=== PATIENT | male | born 1985 | race Caucasian/White ===

== ENCOUNTER 2018-02-08 19:10 | Emergency (ER) | payer OTHER ==
[~2018-02-08] VITALS: Ht 167.6 cm; Wt 95.3 kg
[2018-02-08 19:17] VITALS: BP 141/85
[2018-02-08] MEDS ORDERED: BACTRIM DS TAB1 EACH PO (20:09)
--- NOTE | 2018-02-08 20:11 | ED GENERAL ADULT ---
History of Present Illness General Chief Complaint: General Adult Stated Complaint: PT POSSIBLE SPIDER BITE ON THE LT LEG Source: patient Exam Limitations: no limitations Vital Signs & Intake/Output Vital Signs & Intake/Output Vital Signs Date Time Temp Pulse Resp B/P B/P Pulse O2 O2 Flow FiO2 Mean Ox Delivery Rate 02/08 1917 98.4 57 18 141/85 97 Room Air Allergies Coded Allergies: No Known Allergies (02/08/18) Reconcile Medications Sulfamethoxazole/Trimethoprim (Bactrim Ds Tablet) 800 MG-160 MG TABLET 1 TAB PO BID cellulitis Triage Note: REQUESTING EVALUATION OF BUG BOTE TO THE LEFT LOWER LEG. NOTICED IT 3 DAYS AGO AND HAS BEEN WORSENING SINCE. Triage Nurses Notes Reviewed? yes Onset: Gradual Duration: day(s): Timing: constant HPI: 32-year-old otherwise healthy male presenting with pain and redness to his left leg 3 days. Patient reports that his symptoms initially started with a small red dot that he thought was a bug bite, but the redness has been gradually spreading over the past few days. Has been using topical Neosporin without relief. Denies fevers, nausea, vomiting, numbness, paresthesias, drainage. (Shae Barrera) Past History Travel History Traveled to [place] past 21 day No Medical History Any Pertinent Medical History? none Surgical History Surgical History: non-contributory Psychosocial History What is your primary language Swedish Tobacco Use: Current Daily Use Daily Tobacco Use Amount/Type: => 5 Cigarettes daily Family History Hx Contributory? No (Shae Barrera) Review of Systems Review of Systems Constitutional: Reports: no symptoms. EENTM: Reports: no symptoms. Respiratory: Reports: no symptoms. Cardiovascular: Reports: no symptoms. GI: Reports: no symptoms. Genitourinary: Reports: no symptoms. Musculoskeletal: Reports: see HPI. Skin: Reports: see HPI. Neurological/Psychological: Reports: no symptoms. Hematologic/Endocrine: Reports: no symptoms. Immunologic/Allergic: Reports: no symptoms. All Other Systems: Reviewed and Negative (Shae Barrera) Physical Exam Physical Exam General Appearance: well developed/nourished, no apparent distress, alert, awake , comfortable Head: atraumatic, normal appearance Eyes: Bilateral: normal appearance. Neck: normal inspection Respiratory: normal breath sounds, lungs clear Cardiovascular: regular rate/rhythm Gastrointestinal: soft, non-tender Back: normal inspection Extremities: on exam of the left lower extremity there is trace erythema and TTP to the anterior distal leg over the coyle. There is no edema or increased warmth. The calf is supple and non-tender. Sensation intact. Motor strength 5/5. Distal pulses 2+. Able to bear weight and ambulate. Neurologic/Psych: awake, alert, oriented x 3, normal gait, normal mood/affect Skin: intact, normal color, warm/dry Core Measures ACS in differential dx? No CVA/TIA Diagnosis: No Sepsis Present: No Sepsis Focused Exam Completed? No (Shae Barrera) Progress Differential Diagnoses I considered the following diagnoses in my evaluation of the patient: [Insect bite versus cellulitis, low concern for DVT versus sepsis versus fracture] Plan of Care: Current Medications Sig/Kartik Start time Last Medication Dose Stop Time Status Admin Trimethoprim/ 1 TAB ONCE ONE 02/08 2015 UNVr Sulfamethoxazole 02/09 2016 (Bactrim DS) Exam is consistent with a mild cellulitis. Low concern for sepsis as patient has had no systemic symptoms, therefore no indication for labs at this time. Rx Bactrim. Counseled on supportive care and strict return precautions. Initial ED EKG: none (Shae Barrera) Departure Departure Disposition: HOME OR SELF CARE Condition: Stable Clinical Impression Primary Impression: Cellulitis Referrals: Patient Has No Primary Care Dr (PCP/Family) Additional Instructions: Take Bactrim as prescribed. Follow-up with a primary care provider to establish care and for reevaluation. Return to the emergency department for any fevers, worsening redness, drainage, vomiting, or any other new or concerning symptoms. Departure Forms: Customer Survey General Discharge Information Prescriptions: Current Visit Scripts Sulfamethoxazole/Trimethoprim (Bactrim Ds Tablet) 1 TAB PO BID #20 TAB (Shae Barrera) PA/PHARMACY SERVICE ASSOCIATE Co-Sign Statement Statement: ED Attending supervision documentation- [] I saw and evaluated the patient. I have also reviewed all the pertinent lab results and diagnostic results. I agree with the findings and the plan of care as documented in the PA's/PHARMACY SERVICE ASSOCIATE's documentation. [x] I have reviewed the ED Record and agree with the PA's/PHARMACY SERVICE ASSOCIATE's documentation. [] Additions or exceptions (if any) to the PAs/PHARMACY SERVICE ASSOCIATE's note and plan are summarized below: [] (Berry Julian DO) Critical Care Note Critical Care Note Critical Care Time: non-applicable (Jacob PLEITEZ,Shae)
== END 2018-02-08 20:29 ==
LOC: ERH 19:10
DX: L03.116 Cellulitis of left lower limb (principal)